=== PATIENT | male | born 1995 | race Two or more races ===

== ENCOUNTER 2020-12-21 22:51 | Emergency (ER) | payer OTHER ==
[~2020-12-21] VITALS: Ht 177.8 cm; Wt 115.7 kg
[~2020-12-21 22:51] MED LIST: TRAZ-182 PO
--- NOTE | 2020-12-21 22:55 | NUR ---
PT ANGEL TIERNEY FROM AN ALLEY ADMITS TO ETOH AND XANAX, A/O X 4, BREATHING EVEN AND UNLABORED, SATURATION AT 95% ON ROOM AIR. SEEN AND EXAMINED BY MD. PT ATTACHED TO MONITOR AND PULSE OX. WILL CONTINUE TO MONITOR AND ATTANE DTO MD ORDERS.
--- NOTE | 2020-12-22 04:30 | NUR ---
PT AWAKE WITH NO MEMORY OF EVENTS PRIOR TO BEING ADMISSION.
--- NOTE | 2020-12-22 05:05 | NUR ---
Patient discharged to home in stable condition. Written and verbal after care instructions given. Patient verbalizes understanding of instruction. Pt ambulatory with a steady gait.
[2020-12-22 05:13] VITALS: BP 141/82
== END 2020-12-22 05:05 | disposition home or self-care (01) ==
LOC: ER 22:54
DX: F10.129 Alcohol abuse with intoxication, unspecified (principal); F41.9 Anxiety disorder, unspecified; Y90.9 Presence of alcohol in blood, level not specified
CPT/HCPCS: 82962-TC

== ENCOUNTER 2022-05-06 16:34 | Emergency (ER) | payer OTHER ==
--- NOTE | 2022-05-06 16:55 | NUR ---
CALLED TO TRIAGE,NO ANSWER
--- NOTE | 2022-05-06 17:20 | NUR ---
CALLED TO TRIAGE,NO ANSWER
--- NOTE | 2022-05-06 17:34 | NUR ---
CALLED,NO ANSWER
== END 2022-05-06 17:34 | disposition left against medical advice (07) ==
LOC: ER 16:34
DX: Z53.21 Procedure and treatment not carried out due to patient leaving prior to being seen by health care provider (principal)